=== PATIENT | male | born 1955 | race Caucasian/White ===

== ENCOUNTER 2022-09-18 07:44 | Outpatient (REF) | payer BC, SELFPAY ==
[2022-09-18 08:01] LABS: MANUAL DIFF FLAG NO
[2022-09-18 08:12] LABS: Ammonia 16 umol/L (13-55)
[2022-09-18 08:26] LABS: Basophils Absolute Auto 0.1 X10*3/uL (0.0-0.2); Basophils Percent Auto 0.6 % (0-2); Eosinophils Absolute Auto 0.1 X10*3/uL (0.0-0.4); Eosinophils Percent Auto 1.4 % (0-4); Hematocrit 47.5 % (42.0-52.0); Hemoglobin 15.2 g/dl (14.0-18.0); Imm Gran Abs Auto 0.02 X10*3/uL (0.00-0.03); Imm Gran Pct Auto 0.2 % (0.0-0.4); Lymphocytes Absolute Auto 1.2 X10*3/uL (1.2-4.9); Lymphocytes Percent Auto 13.6 % (20-40); Mean Corpuscular Hemoglobin 27.1 pg (27.0-33.0); Mean Corpuscular Volume 84.8 fL (80.0-98.0); Mean Platelet Volume 11.7 fL (9.4-12.4); Monocytes Absolute Auto 0.7 X10*3/uL (0.1-1.2); Monocytes Percent Auto 8.1 % (2-11); Neutrophils Absolute Auto 6.5 x10*3/uL (2.0-8.3); Neutrophils Percent Auto 76.1 % (45-73); Platelet Count 225 X10*3/uL (160-400); Red Cell Distribution Width 15.1 % (11.0-16.0); White Blood Count 8.5 X10*3/uL (4.8-10.8)
[2022-09-18 09:06] LABS: Alanine Aminotransferase 25 U/L (0-40); Albumin Level 4.1 g/dL (3.5-5.0); Alkaline Phosphatase 65 U/L (39-117); Anion Gap 11 (12-20); Aspartate Amino Transferase 17 U/L (5-37); Bilirubin Direct 0.2 mg/dL (0.0-0.5); Bilirubin Total 0.6 mg/dL (0.0-1.0); Blood Urea Nitrogen 16 mg/dL (9-16); Carbon Dioxide 27 mmol/L (22-29); Chloride 108 mmol/L (96-108); Cholesterol 106 mg/dL; Estimated Glomerular Filt Rate > 60; Glucose Random 102 mg/dL (60-115); HDL Cholesterol 43 mg/dL; LDL Cholesterol Calculated 48 mg/dl; Potassium 4.7 mmol/L (3.3-5.1); Sodium 141 mmol/L (135-145); Total Protein 6.6 g/dL (6.5-8.0); Triglycerides 79 mg/dL
[2022-09-18 09:22] LABS: Erythrocyte Sedimentation Rate 5 MM/HR (0-15)
== END 2022-09-18 07:45 | disposition home or self-care (01) ==
LOC: HO.LAB 07:44
PROVIDERS: PCP Internal Medicine; Visit Provider Psychiatry & Neurology Neurology
DX: I63.9 Cerebral infarction, unspecified (principal)
CPT/HCPCS: 36415; 80048; 80061; 80076; 82140; 85025; 85652

== ENCOUNTER 2022-10-02 13:20 | Outpatient (REF) | payer BC, SELFPAY ==
--- NOTE | ~2022-10-02 | CT_ITS ---
CT ANGIOGRAM NECK WITH CONTRAST CT ANGIOGRAM BRAIN WITH CONTRAST CLINICAL INFORMATION: History of strokes. COMPARISON: None available. TECHNIQUE: Test bolus sequences followed by intravenous administration 70 mL of Omnipaque 350. Helical imaging was performed in the axial plane from the thoracic inlet to the skull vertex. Delayed postcontrast imaging of the head was also performed. The data was processed at the tomography technologist workstation for generation of MIP sequences. Angled MIPs and volume rendered reformatted images were also generated at an offline 3D workstation under concurrent supervision. Stenoses are assessed in accordance with NASCET criteria unless otherwise indicated. This CT examination was performed using dose optimization techniques as appropriate, variously including the following: *Automated exposure control *Adjustment of mA and/or kV according to patient size (this includes techniques or standardized protocols for targeted exams where dose is matched to indication/reason for exam; i.e. extremities or head) *Use of iterative reconstruction technique FINDINGS: BRAIN: There is a chronic infarct involving the right parietal lobe inclusive of the postcentral gyrus, there is a chronic right striatocapsular infarct, and there is a chronic lacunar infarct within the ventral left thalamus. [There is no intracranial hemorrhage, hydrocephalus, extra-axial surface collection, midline shift, or other herniation pattern. Killian to white matter differentiation is diffusely maintained without evidence of an evolved acute territorial infarct. The basilar cisterns are preserved. No significant soft tissue abnormality. No acute osseous abnormality. Mild sinus mucosal disease. CERVICAL SOFT TISSUES AND LUNG APICES: Emphysema and blebs throughout the imaged lungs. Advanced cervical spondylosis. No significant soft tissue findings within the neck. 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 NECK CTA: There is atherosclerotic calcification within the aortic arch. Atherosclerotic calcification results in a mild stenosis of the proximal right subclavian artery. Possible severe stenosis of the left vertebral artery origin, not well assessed due to motion artifact. The vertebral arteries are codominant and otherwise widely patent throughout their cervical course. The common carotid arteries are widely patent. There is atherosclerotic calcification involving the carotid bifurcations bilaterally without significant stenosis involving the proximal internal carotid arteries on either side. BRAIN CTA: Atherosclerotic calcification throughout the carotid siphons bilaterally without significant stenosis. No focal flow-limiting stenosis nor discrete proximal large artery occlusion. No aneurysm. Timing of the contrast bolus allows assessment of the major dural venous sinuses, which all opacify normally] CT/CT angio head neck IMPRESSION: - No acute intracranial findings. There is a chronic infarct involving the right parietal lobe inclusive of the postcentral gyrus, there is a chronic right striatocapsular infarct, and there is a chronic lacunar infarct within the ventral left thalamus. - No acute arterial occlusions and no significant arterial stenoses intracranially. - Possible severe stenosis of the left vertebral artery origin, not well assessed due to motion artifact. No additional significant arterial stenoses within the neck. - Advanced cervical spondylosis. - Elongated styloid processes bilaterally that can be correlated for clinical signs of Newton syndrome.
[2022-10-02] MEDS: iohexoL 350 MG/ML 100 ML INFUS..BTL IV (14:47)
== END 2022-10-02 13:21 | disposition home or self-care (01) ==
LOC: HO.CT 13:20
PROVIDERS: Visit Provider Psychiatry & Neurology Neurology
DX: I63.9 Cerebral infarction, unspecified (principal)
CPT/HCPCS: 70496; 70498; Q9967

== ENCOUNTER 2023-11-10 16:23 | Outpatient (REF) | payer BC, SELFPAY ==
[2023-11-10 16:43] LABS: MANUAL DIFF FLAG NO
[2023-11-10 17:15] LABS: Basophils Absolute Auto 0.1 X10*3/uL (0.0-0.2); Basophils Percent Auto 0.4 % (0-2); Eosinophils Absolute Auto 0.1 X10*3/uL (0.0-0.4); Eosinophils Percent Auto 0.8 % (0-4); Hematocrit 42.6 % (42.0-52.0); Imm Gran Abs Auto 0.08 X10*3/uL (0.00-0.03); Imm Gran Pct Auto 0.6 % (0.0-0.4); Lymphocytes Absolute Auto 1.1 X10*3/uL (1.2-4.9); Lymphocytes Percent Auto 8.4 % (20-40); Mean Corpuscular HGB Conc 32.9 g/dl (31.0-36.0); Mean Corpuscular Hemoglobin 27.7 pg (27.0-33.0); Mean Corpuscular Volume 84.2 fL (80.0-98.0); Mean Platelet Volume 11.3 fL (9.4-12.4); Monocytes Absolute Auto 1.1 X10*3/uL (0.1-1.2); Monocytes Percent Auto 8.8 % (2-11); Neutrophils Absolute Auto 10.4 x10*3/uL (2.0-8.3); Platelet Count 278 X10*3/uL (160-400); Red Blood Count 5.06 X10*6/uL (4.60-5.80); Red Cell Distribution Width 14.6 % (11.0-16.0); White Blood Count 12.9 X10*3/uL (4.8-10.8)
[2023-11-10 17:18] LABS: Appearance Urine Clear; Color Urine Yellow; Glucose Urine UA Negative (Negative); Leukocyte Esterase Urine Negative (Negative); Nitrite Urine Negative (Negative); UMIC TRIGGER UA YES; Urine Blood Negative (Negative); Urine Ketones Negative (Negative); Urine Protein 30 (1+) mg/dL (Neg-Trace)
[2023-11-10 17:24] LABS: Bacteria Urine None Seen (None Seen); Hyaline Casts Urine 0-2 /LPF (0-2); RBC Urine 0-2 /HPF (0-2); Squamous Epithelial Cell Urine 0-2 /HPF (0-2); WBC Urine 0-5 /HPF (0-5)
[2023-11-10 17:40] LABS: Anion Gap 13 (12-20); Blood Urea Nitrogen 12 mg/dL (9-16); Calcium 9.1 mg/dL (8.4-10.2); Carbon Dioxide 25 mmol/L (22-29); Chloride 105 mmol/L (96-108); Estimated Glomerular Filt Rate > 60; Glucose Random 99 mg/dL (60-115); Potassium 3.9 mmol/L (3.3-5.1); Sodium 139 mmol/L (135-145)
[2023-11-10 17:58] LABS: Erythrocyte Sedimentation Rate 40 MM/HR (0-15)
== END 2023-11-10 16:24 | disposition home or self-care (01) ==
LOC: HO.LAB 16:23
PROVIDERS: PCP Internal Medicine; Visit Provider Psychiatry & Neurology Neurology
DX: I63.9 Cerebral infarction, unspecified (principal)
CPT/HCPCS: 36415; 80048; 81001; 85025; 85652

== ENCOUNTER 2023-11-17 11:36 | Emergency (ER) | payer BC, SELFPAY ==
--- NOTE | ~2023-11-17 | CT_ITS ---
EXAMINATION: CT HEAD WITHOUT CONTRAST CLINICAL INFORMATION: Headache COMPARISON: 10/02/2022 TECHNIQUE: Contiguous axial imaging was performed from the skull base to vertex without intravenous administration of contrast. This CT examination was performed using dose optimization techniques as appropriate, variously including the following: *Automated exposure control *Adjustment of mA and/or kV according to patient size (this includes techniques or standardized protocols for targeted exams where dose is matched to indication/reason for exam; i.e. extremities or head) *Use of iterative reconstruction technique DLP: 706 mGy-cm FINDINGS: No evidence of intracranial hemorrhage, extra-axial surface collection, focal mass effect or midline shift. Mild parenchymal volume loss with commensurate prominence of ventricles and sulci. No hydrocephalus. Again noted is hypoattenuation from an old right parietal lobe infarct involving the postcentral gyrus. The old lacunar infarct of the anterior left thalamus is less conspicuous on the current exam compared to 10/02/2022. Also noted is an old small infarct in the region of the right corpus striatum. The brainstem and cerebellum are unremarkable. The cerebellar tonsils are in normal position. The calvarium is intact. There is mucus of some of the bilateral ethmoid air cells, and a few mucous retention cysts and mucosal thickening of maxillary sinuses. No air-fluid levels within paranasal sinuses. The orbits, globes and temporomandibular joints are unremarkable. The mastoid air cells are well aerated. CT/CT head/brain wo IV con IMPRESSION: * A few old infarcts are noted. * No intracranial hemorrhage or other acute intracranial pathology compared to 10/02/2022.
--- NOTE | ~2023-11-17 | XR_ITS ---
EXAMINATION: XR CHEST CLINICAL INFORMATION: Cough, rhonchi COMPARISON: None available. TECHNIQUE: 2 views of the chest were obtained. FINDINGS: Diffuse interstitial prominence favored to represent inflammation/bronchitis or atypical pneumonia. No focal consolidation. No pleural effusion. Normal cardiomediastinal silhouette. XR/XR chest 2V IMPRESSION: Diffuse interstitial prominence favored to represent inflammation/bronchitis or atypical pneumonia.
[2023-11-17 11:44] VITALS: BP 154/76; PULSE 64; RESP 17; TEMP 36.6; O2SAT 97; BMI 25.0
--- NOTE | 2023-11-17 11:47 | ED.GENADULT ---
HPI - General Adult General Chief complaint: Dizziness Stated complaint: ? stroke Time Seen by Provider: 11/17/23 16:46 History of Present Illness ED Provider: James ROSE narrative: The patient is a 67-year-old male who says that he has a history of paroxysmal atrial fibrillation and is on apixaban. He also says that he has been told that he has had some strokes in the past. The patient says that over the last week he has felt unwell and has had symptoms that included dizziness and headaches and a sense of chills. These symptoms persisted for several days. They were not associated with a cough. No abdominal pain. He had some mild occasional nausea but no vomiting. No urinary discomfort. No diarrhea. Today he was feeling somewhat better and thought he ought to get checked so he drove himself to the emergency room. He says that the symptoms that he has had over the last several days remind him of symptoms that he has had when he has had a stroke in the past. He says that he has been treated 3 times for strokes, twice in [place] and once at [facility] in this area. The patient is a smoker who still smokes. He lives alone. I spoke to his ex- on the phone who says she was concerned that he has had episodes of slurred speech recently. The last time she thought his speech might be slurred was about 2 weeks ago. Related Data Allergies Allergy/AdvReac Type Severity Reaction Status Date / Time No Known Allergies Allergy Verified 11/17/23 11:46 [facility] Social History Social History Smoked in Last 30 Days: Yes Use of substances other than those prescribed or required for medical reasons: No Advance Directives: No Advance Directives Information Provided: Yes Physical Exam ED Vital Signs: Vital Signs - 24 hr 11/17/23 11:44 11/17/23 17:01 11/17/23 17:21 Temperature 97.8 F Pulse Rate 64 58 58 Respiratory Rate 17 16 Blood Pressure 154/76 H 188/72 H 188/72 H Pulse Oximetry 97 97 Oxygen Delivery Method Room Air Room Air 11/17/23 17:21 11/17/23 17:22 11/17/23 18:09 Temperature 97.8 F Pulse Rate 60 63 63 Respiratory Rate 16 Blood Pressure 172/69 H 169/77 H 169/77 H Pulse Oximetry 97 Oxygen Delivery Method Room Air BMI result Body Mass Index 25.0 Course Course Course Narrative: RME, this is a rapid medical exam performed by Jay Hand please refer to primary provider for complete H&P- 67-year-old male past medical history significant for previous CVA, hypertension, hyperlipidemia, GERD, AFib presents for evaluation of congestion, headache, chills, dizziness for the last 2 days. He also complains of headache and ?forgetfulness. ? He feels as though this is similar to stroke symptoms that he has had in the past. He has not had any facial droop, difficulty speaking or unilateral weakness. His NIH stroke score is 0 in triage. Plan for broad workup including labs, viral swabs. Plan for CT brain given the headache and the fact the patient is on Eliquis. Medical Decision Making Medical Decision Making [facility] Narrative: The patient is a 67-year-old male who was on apixaban and also takes that the baby aspirin daily. He is a smoker who still smokes. He lives alone. He reports that he has a poor memory. Says that for the last week he has been having episodes of feeling chilled and dizzy. He has not had a cough. He says that he came to the emergency room today because he was feeling better than he has been feeling for several days and he thought he ought to be checked. He drove himself to the emergency room. The patient's major concern was that he might have had another stroke. There is nothing on his physical exam to suggest that he has had an acute stroke. I spoke to his ex- on the phone who was concerned that he had had an episode of slurred speech a couple of weeks ago. He does not have any slurred speech now. The only significant finding on his physical exam is that his lungs were quite rhonchorous bilaterally. He was not exhibiting any signs of respiratory distress and he was not coughing any said he has not been coughing. His chest x-ray shows some increased interstitial markings. My overall impression is that the patient probably had some kind of a viral illness that seems to be resolving spontaneously. I think he may be discharged without specific therapy to follow up with his regular doctor and his neurologist. Lab Data 11/17/23 12:06 11/17/23 12:06 Labs: Lab Results 11/17/23 11/17/23 Range/Units 12:02 12:06 WBC 7.5 (4.8-10.8) X10*3/uL RBC 5.07 (4.60-5.80) X10*6/uL Hgb 14.1 (14.0-18.0) g/dl Hct 43.1 (42.0-52.0) % MCV 85.0 (80.0-98.0) fL MCH 27.8 (27.0-33.0) pg MCHC 32.7 (31.0-36.0) g/dl RDW 14.6 (11.0-16.0) % Plt Count 276 (160-400) X10*3/uL MPV 10.8 (9.4-12.4) fL Immature Gran % (Auto) 0.4 (0.0-0.4) % Neut % (Auto) 75.9 H (45-73) % Lymph % (Auto) 13.0 L (20-40) % [place] % (Auto) 7.9 (2-11) % Eos % (Auto) 2.3 (0-4) % Baso % (Auto) 0.5 (0-2) % Lymph # (Auto) 1.0 L (1.2-4.9) X10*3/uL [place] # (Auto) 0.6 (0.1-1.2) X10*3/uL Eos # (Auto) 0.2 (0.0-0.4) X10*3/uL Baso # (Auto) 0.0 (0.0-0.2) X10*3/uL Abs Immat Gran (auto) 0.03 (0.00-0.03) X10*3/uL Absolute Neuts (auto) 5.7 (2.0-8.3) x10*3/uL Absolute Nucleated RBC 0.000 (0.0-0.012) X10*3/uL Nucleated RBC % (auto) 0.0 (0.0-0.2) /100WBC PT 16.2 H (11.1-13.3) SEC INR 1.3 H (0.9-1.1) APTT 37.1 H (26.0-36.8) SEC Sodium 142 (135-145) mmol/L Potassium 4.5 (3.3-5.1) mmol/L Chloride 110 H (96-108) mmol/L Carbon Dioxide 25 (22-29) mmol/L Anion Gap 12 (12-20) BUN 9 (9-16) mg/dL Creatinine 1.22 (0.5-1.4) mg/dL Estim Creat Clear Calc 62.3 Estimated GFR 60 Random Glucose 98 (60-115) mg/dL Calcium 8.6 (8.4-10.2) mg/dL Total Bilirubin 0.2 (0.0-1.0) mg/dL AST 26 (5-37) U/L ALT 23 (0-40) U/L Alkaline Phosphatase 79 (39-117) U/L Troponin I High Sens < 2.7 (<3.5-35.0) ng/L C-Reactive Protein 1.09 H (< or = 0.50) mg/dL B-Natriuretic Peptide 139 H (<100) pg/mL Total Protein 6.8 (6.5-8.0) g/dL Albumin 3.7 (3.5-5.0) g/dL Lipase 39 (8-78) U/L Urine Color Yellow Urine Appearance Clear Urine pH 5.5 (5.0-9.0) Ur Specific [place] 1.020 (1.005-1.025) Urine Protein Trace (Neg-Trace) mg/dL Urine Glucose (UA) Negative (Negative) mg/dL Urine Ketones Trace (Negative) mg/dL Urine Blood Negative (Negative) Urine Nitrite Negative (Negative) Ur Leukocyte Esterase Negative (Negative) Urine RBC 0-2 (0-2) /HPF Urine WBC 0-5 (0-5) /HPF Ur Squamous Epith Cells 0-2 (0-2) /HPF Urine Bacteria None Seen (None Seen) Hyaline Casts 0-2 (0-2) /LPF Influenza Type A (PCR) NEGATIVE (Negative) Influenza Type B (PCR) NEGATIVE (Negative) RSV RNA Qual (PCR) NEGATIVE (Negative) SARS-CoV-2 RNA (RT-PCR) NEGATIVE (Negative) S. pyogenes GrpA CECIL Negative (Negative) Independent Interpretation I performed an independent interpretation of an: EKG Interpretation: EKG at 11:50 shows normal sinus rhythm at 61 beats per minute. It is an unremarkable EKG. Discharge Plan Discharge Clinical Impression: Chills, Dizziness, Headache Patient Disposition: Home, Self-Care Additional Instructions: Please continue all of your regular medications. Please do your best to reduce or stop smoking. Please follow up soon with your regular doctor and also with your neurologist. Return to the emergency room if you feel significantly worse, especially if you develop a fever or shortness of breath or coughing. Referrals: Kolton Jack MD [Physician] - (Chills and other symptoms) Marga Mckeon MD [Physician] - (Possible episodes of slurred speech) Interventions: ED Discharge Assessment Last Done: 11/17/23 18:09 Discharge Date/Time: 11/17/23 18:12 Print Language: Kinyarwanda
--- NOTE | 2023-11-17 11:48 | ECG_ITS ---
Test Reason : dizziness Blood Pressure : / mmHG Vent. Rate : 061 BPM Atrial Rate : 061 BPM P-R Int : 174 ms QRS Dur : 092 ms QT Int : 452 ms P-R-T Axes : 040 060 048 degrees QTc Int : 455 ms Normal sinus rhythm Possible Left atrial enlargement Borderline ECG No previous ECGs available Referred By: Kulwant Hand Electronically Signed By:Timothy Ruiz
[2023-11-17 12:12] LABS: MANUAL DIFF FLAG NO
[2023-11-17 12:13] LABS: Basophils Percent Auto 0.5 % (0-2); Eosinophils Absolute Auto 0.2 X10*3/uL (0.0-0.4); Eosinophils Percent Auto 2.3 % (0-4); Hematocrit 43.1 % (42.0-52.0); Hemoglobin 14.1 g/dl (14.0-18.0); Imm Gran Abs Auto 0.03 X10*3/uL (0.00-0.03); Imm Gran Pct Auto 0.4 % (0.0-0.4); Mean Corpuscular HGB Conc 32.7 g/dl (31.0-36.0); Mean Corpuscular Hemoglobin 27.8 pg (27.0-33.0); Mean Platelet Volume 10.8 fL (9.4-12.4); Monocytes Absolute Auto 0.6 X10*3/uL (0.1-1.2); Monocytes Percent Auto 7.9 % (2-11); Neutrophils Absolute Auto 5.7 x10*3/uL (2.0-8.3); Neutrophils Percent Auto 75.9 % (45-73); Platelet Count 276 X10*3/uL (160-400); Red Blood Count 5.07 X10*6/uL (4.60-5.80); Red Cell Distribution Width 14.6 % (11.0-16.0); White Blood Count 7.5 X10*3/uL (4.8-10.8)
[2023-11-17 12:21] LABS: Appearance Urine Clear; Color Urine Yellow; Glucose Urine UA Negative (Negative); Leukocyte Esterase Urine Negative (Negative); Nitrite Urine Negative (Negative); PH 5.5 (5.0-9.0); Urine Blood Negative (Negative); Urine Ketones Trace mg/dL (Negative); Urine Protein Trace mg/dL (Neg-Trace)
[2023-11-17 12:21] LABS: INTERNATIONAL NORM RATIO 1.3 (0.9-1.1); Prothrombin Time 16.2 SEC (11.1-13.3)
[2023-11-17 12:24] LABS: Bacteria Urine None Seen (None Seen); Hyaline Casts Urine 0-2 /LPF (0-2); RBC Urine 0-2 /HPF (0-2); Squamous Epithelial Cell Urine 0-2 /HPF (0-2); WBC Urine 0-5 /HPF (0-5)
[2023-11-17 12:24] LABS: Partial Thromboplastin Time 37.1 SEC (26.0-36.8)
[2023-11-17 12:30] LABS: IDNOW Serial# 08D9AD1C; Strep A Nucleic Acid Negative (Negative)
[2023-11-17 12:31] LABS: Alanine Aminotransferase 23 U/L (0-40); Albumin Level 3.7 g/dL (3.5-5.0); Alkaline Phosphatase 79 U/L (39-117); Anion Gap 12 (12-20); Aspartate Amino Transferase 26 U/L (5-37); Bilirubin Total 0.2 mg/dL (0.0-1.0); Blood Urea Nitrogen 9 mg/dL (9-16); Calcium 8.6 mg/dL (8.4-10.2); Carbon Dioxide 25 mmol/L (22-29); Chloride 110 mmol/L (96-108); Creatinine Clr Calc Pharmacy 62.3; Estimated Glomerular Filt Rate 60; Glucose Random 98 mg/dL (60-115); Potassium 4.5 mmol/L (3.3-5.1); Sodium 142 mmol/L (135-145); Total Protein 6.8 g/dL (6.5-8.0)
[2023-11-17 12:33] LABS: B Type Natriuretic Peptide 139 pg/mL (<100)
[2023-11-17 12:34] LABS: Troponin-I High Sensitivity < 2.7 ng/L (<3.5-35.0)
[2023-11-17 12:43] LABS: Lipase 39 U/L (8-78)
[2023-11-17 12:54] LABS: Influenza A PCR NEGATIVE (Negative); Influenza B PCR NEGATIVE (Negative); Resp Syncy Virus RNA Qual PCR NEGATIVE (Negative); SARS COV2 PCR INHOUSE NEGATIVE (Negative)
[2023-11-17 17:01] VITALS: BP 188/72; PULSE 58; RESP 16; O2SAT 97
[2023-11-17 17:21] VITALS: BP 172/69; BP 188/72; PULSE 58; PULSE 60
[2023-11-17 17:22] VITALS: BP 169/77; PULSE 63
[2023-11-17 17:26] LABS: C Reactive Protein 1.09 mg/dL (< or = 0.50)
[2023-11-17 18:09] VITALS: BP 169/77; PULSE 63; RESP 16; TEMP 36.6; O2SAT 97
== END 2023-11-17 18:12 | disposition home or self-care (01) ==
PROVIDERS: Physician Assistant; Emergency Provider Emergency Medicine
DX: R42 Dizziness and giddiness (principal); R51.9 Headache, unspecified; R68.83 Chills (without fever); I10 Essential (primary) hypertension; I48.0 Paroxysmal atrial fibrillation; R11.0 Nausea; Z79.01 Long term (current) use of anticoagulants; Z03.818 Encounter for observation for suspected exposure to other biological agents ruled out
CPT/HCPCS: 0241U; 36415; 70450; 71046; 80053; 81001; 83690; 83880; 84484; 85025; 85610; 85730; 86140; 87651; 93005; 99284; 99285

== ENCOUNTER → 2023-11-17 11:48 | Outpatient (BNV) | payer BC, SELFPAY | PROVIDERS: Visit Provider Internal Medicine Cardiovascular Disease | DX: R42 Dizziness and giddiness (principal) | CPT/HCPCS: 93010 ==